=== PATIENT | female | born 1975 | race Two or more races ===

== ENCOUNTER 2017-04-30 06:25 | Day surgery (SDC) | payer OTHER ==
[2017-04-30 07:25] LABS: *URINE HCG, QUAL NEGATIVE (NEGATIVE)
== END 2017-04-30 13:35 | disposition home or self-care (01) ==
LOC: DS 06:25
PROVIDERS: ATTEND Specialist
DX: M75.41 Impingement syndrome of right shoulder (principal); M19.011 Primary osteoarthritis, right shoulder; E11.9 Type 2 diabetes mellitus without complications; Z79.4 Long term (current) use of insulin; Z98.890 Other specified postprocedural states; Z83.3 Family history of diabetes mellitus; Z79.84 Long term (current) use of oral hypoglycemic drugs; Z79.1 Long term (current) use of non-steroidal anti-inflammatories (NSAID); J45.909 Unspecified asthma, uncomplicated
CPT/HCPCS: 84703; A4649; A4663; C1713; J0690; J1170; J1885; J2250; J2405; J2765; J3010; J3490; J7042